=== PATIENT | female | born 1955 | race Caucasian/White ===

== ENCOUNTER 2019-12-22 10:25 | Emergency (ER) | payer OTHER ==
[~2019-12-22] VITALS: Ht 157.5 cm; Wt 50.8 kg
[2019-12-22] MEDS ORDERED: LIPITOR20 MG PO (10:39)
[2019-12-22] MEDS ORDERED: SUPER THERAVIT1 EACH PO (10:39)
[2019-12-22 10:40] LABS: URINE BILIRUBIN NEGATIVE (Negative); URINE BLOOD 3+ (Negative); URINE CLARITY CLEAR; URINE COLOR YELLOW; URINE GLUCOSE-RANDOM NEGATIVE (Negative); URINE KETONES NEGATIVE (Negative); URINE LEUKOCYTES-REFLEX NEGATIVE (Negative); URINE NITRITE-REFLEX NEGATIVE (Negative); URINE PROTEIN NEGATIVE (Negative); URINE UROBILINOGEN 0.2 E.U./dl (0.2-1.0)
[2019-12-22 10:45] LABS: SQUAMOUS 0-3 Few /LPF (0-3); URINE WBC-REFLEX 0-5 Rare /HPF (0-5)
[2019-12-22 10:46] LABS: BACTERIA-REFLEX 1-9 Few /HPF (None Seen); CASTS None Seen /LPF (None Seen); CRYSTALS None Seen /LPF (None Seen); MUCUS None Seen strn/LPF (None Seen)
[2019-12-22 10:58] LABS: ABSOLUTE BASOPHILS 0.1 thou/uL (0.0-0.2); ABSOLUTE LYMPHOCYTES 1.9 thou/uL (0.8-5.3); ABSOLUTE MONOCYTES 0.8 thou/uL (0.0-1.2); ABSOLUTE NEUTROPHILS 5.2 thou/uL (1.6-8.1); BASOPHILS 0.9 %; EOSINOPHILS 0.4 %; HEMATOCRIT 41.6 % (37.0-47.0); HEMOGLOBIN 14.2 gm/dL (12.0-15.0); LYMPHOCYTES 23.4 %; MCH 31.1 pg (26.0-34.0); MCV 91.5 fL (80.0-100.0); MONOCYTES 10.5 %; MPV 7.4 fl. (7.2-11.1); NUCLEATED RBCS 0 /100WBC; PLATELET COUNT* 284 thou/uL (150-400); POLYS 64.8 %; RBC 4.55 mil/uL (4.20-5.00); RDW-CV 13.5 % (10.5-14.5)
[2019-12-22 11:07] LABS: CALCIUM 9.2 mg/dL (8.5-10.1); CREATININE 0.8 mg/dL (0.6-1.3); POTASSIUM 3.6 mmol/L (3.5-5.1)
[2019-12-22 11:11] LABS: ALBUMIN 3.9 g/dL (3.4-5.0); TOTAL BILIRUBIN 0.5 mg/dL (<0.1-1.0); TOTAL PROTEIN 7.2 g/dL (6.4-8.2)
[2019-12-22] MEDS ORDERED: PERCOCET 5-3251 EACH PO (12:04)
[2019-12-22] MEDS ORDERED: FLOMAX0.4 MG PO (12:04)
[2019-12-22] MEDS ORDERED: CIPROFLOXACIN500 M1 PO (12:04)
[2019-12-22 12:26] VITALS: BP 119/46
--- NOTE | 2019-12-23 14:17 | EKG ---
[place] [address] ELECTROCARDIOGRAM REPORT Name: SRAVANTHI JAIMES Room: [facility]#: [id number] Admission: 12/22/19 Attend Phys: Discharge: 12/22/19 Date of : 55 Date of Service: 12/22/[address] 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 12/23/19 1417 1100 1100 Delfino Hightower MD, [facility] /EPI
--- NOTE | 2019-12-23 14:17 | EKG ---
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1955 Requested By: Kostas Vines Order Number: [id number] MD: Delfino Hightower Measurements Intervals [place] Rate: 63 P: [place]: QRS: 0 QRSD: 110 T: 37 QT: 413 QTc: 423 Interpretive Statements Atrial fibrillation Artifact in lead(s) I,aVR,aVL,aVF,V1 No previous ECG available for comparison Electronically Signed On 12-23-2019 14:17:30 CDT by Delfino Hightower [email or web address] <ELECTRONICALLY SIGNED> By: Delfino Hightower MD, [facility] 12/23/19 1417 1058 1058 Delfino Hightower MD, [facility] /EPI
== END 2019-12-22 12:27 | disposition home or self-care (01) ==
LOC: M.ERS 10:25
PROVIDERS: Family Medicine
DX: N20.0 Calculus of kidney (principal); Z79.899 Other long term (current) drug therapy

== ENCOUNTER 2019-12-23 20:55 | Emergency (ER) | payer OTHER ==
[~2019-12-23 20:55] MED LIST: CIPROFLOXACIN500 M1 PO; FLOMAX0.4 MG PO; LIPITOR20 MG PO; PERCOCET 5-3251 EACH PO; SUPER THERAVIT1 EACH PO
[2019-12-23 21:00] VITALS: BP 00/00
== END 2019-12-23 21:03 | disposition home or self-care (01) ==
LOC: M.ERS 20:55
DX: Z53.21 Procedure and treatment not carried out due to patient leaving prior to being seen by health care provider (principal)